=== PATIENT | female | born 1985 | race Caucasian/White ===

== ENCOUNTER 2021-09-24 20:12 | Emergency (ER) | payer OTHER ==
[~2021-09-24 20:12] MED LIST: CLIMARA1 EAC2 TD; COLACE 100MG C100 MG PO; HYGROTON TAB 2525 MG PO; IBUPROFEN600 MG PO; LORTAB 5-325 M1 EACH PO; NAPROXEN 250 M250 MG PO; NORCO 7.5-3251 EACH PO; PRILOSEC OTC20 MG PO; WELLBUTRIN XL300 M1 PO; ZYRTEC10 MG PO
[2021-09-24 21:10] LABS: HEMOGLOBIN 15.1 gm/dl (12.3-15.3); RED BLOOD COUNT 4.73 M/UL (4.00-5.10); WHITE BLOOD COUNT 11.3 K/UL (4.5-11.0)
[2021-09-24 22:02] LABS: BUN/CREATININE RATIO 13 (0-10)
== END 2021-09-25 01:21 | disposition home or self-care (01) ==
LOC: ER1 20:12
PROVIDERS: Student in an Organized Health Care Education/Training Program
DX: U07.1 COVID-19 (principal); I10 Essential (primary) hypertension; Z90.710 Acquired absence of both cervix and uterus; Z88.0 Allergy status to penicillin; Z88.8 Allergy status to other drugs, medicaments and biological substances; R55 Syncope and collapse; E87.6 Hypokalemia
CPT/HCPCS: 70450; 72125; 80048; 82550; 82553; 84484; 85025; 93005; 96374; 96376; 99285; J3480; Q9967